=== PATIENT | male | born 1960 | race African-American/Black ===

== ENCOUNTER 2021-02-20 11:08 | Emergency (ER) | payer OTHER ==
[~2021-02-20] VITALS: Ht 172.7 cm; Wt 80.3 kg
[2021-02-20 11:52] LABS: ABSOLUTE NEUTROPHILS 4.4 thou/uL (1.4-8.2); BASOPHILS 0.5 % (0.0-2.0); EOSINOPHILS 1.6 % (0.0-3.0); HEMATOCRIT 42.7 % (42.0-52.0); HEMOGLOBIN 14.3 gm/dL (14.0-18.0); LYMPHOCYTES 20.8 % (24.0-44.0); MCH 28.6 pg (26.0-34.0); MCHC 33.4 g/dL (28.0-37.0); MCV 85.6 fL (80.0-100.0); MONOCYTES 8.7 % (1.0-8.0); PLATELET COUNT 211 thou/uL (150-400); POLYS 68.4 % (36.0-66.0); RBC 4.99 mil/uL (4.50-6.00); RDW 13.7 % (10.5-14.5); WBC 6.5 thou/uL (4.0-11.0)
[2021-02-20 11:57] LABS: ANION GAP 12 mmol/L (7-16); BUN 17 mg/dL (7-18); CALCIUM 9.1 mg/dL (8.5-10.1); CHLORIDE 102 mmol/L (98-107); CO2 25 mmol/L (21-32); CREATININE 0.9 mg/dL (0.7-1.3); GLUCOSE 100 mg/dL (74-106); SODIUM 139 mmol/L (136-145)
[2021-02-20 12:08] LABS: ALBUMIN 4.1 g/dL (3.4-5.0); SGOT 28 U/L (15-37); SGPT 45 U/L (16-63); TOTAL BILIRUBIN 0.8 mg/dL (0.2-1.0); TOTAL PROTEIN 8.1 g/dL (6.4-8.2); TROPONIN-I <0.06 ng/mL (<0.06)
[2021-02-20] MEDS ORDERED: CLOTRIMAZOLE 1%15 G1 TOP (12:56)
[2021-02-20 12:57] VITALS: BP 126/77
--- NOTE | 2021-02-20 15:30 | EKG ---
[place] [address] [facility] [employer] [place] [address] ELECTROCARDIOGRAM REPORT Name: HARDIK REBOLLEDO Room #: DEP FILOMENA Brown#: [id number] Admission: 02/20/21 Attend Phys: Discharge: 02/20/21 Date of : 64 Report #: [id number] [facility] ED Test Date: 2021-02-20 Test Time: 11:26:56 Pat Name: HARDIK REBOLLEDO Department: Room: Gender: Senior Publications Specialist: Jeramy ADRIAN : 1960 Requested By: Lynne Aden Order Number: [id number] MD: Robert Jon Measurements Intervals [place] Rate: 78 P: 40 DE: 143 QRS: 36 QRSD: 79 T: 29 QT: 370 QTc: 422 Interpretive Statements Sinus rhythm J Point ST elevation, anterior leads No previous ECG available for comparison Electronically Signed On 02-20-2021 15:30:40 CDT by Robert oJn [email or web address] <ELECTRONICALLY SIGNED> By: Robert Jon MD, [facility] 02/20/21 1530 [id number] Robert Jon MD, FACC /EPI
== END 2021-02-20 13:07 | disposition home or self-care (01) ==
LOC: ER 11:08
PROVIDERS: Nurse Practitioner Family
DX: R06.00 Dyspnea, unspecified (principal); B35.3 Tinea pedis; Z98.890 Other specified postprocedural states